=== PATIENT | female | born 1940 | race African-American/Black ===

== ENCOUNTER 2023-02-05 12:53 | Inpatient (IN) | payer OTHER, MEDICAID ==
[~2023-02-05] VITALS: Ht 167.6 cm; Wt 44.0 kg
[2023-02-05] MEDS ORDERED: SODIUM CHLORIDE 0.9% 500 ML IV ONE (13:15)
[2023-02-05 13:42] LABS: Hemoglobin 9.8 g/dL (12.2-16.2)
[2023-02-05 13:43] LABS: Hematocrit 30.8 % (36.0-46.0); Mean Corpuscular Hgb Conc. 31.9 g/dL (32.0-36.0); Mean Corpuscular Volume 78.5 fL (80.0-100.0); Red Blood Cells 3.92 10^6/uL (4.0-5.20)
[2023-02-05 13:53] LABS: Red Cell Distribution Width 21.7 % (11.8-14.3); White Blood Cell 40.8 10^3/uL (4.4-10.8)
[2023-02-05 13:55] LABS: Basophils % (manual) 0 (0.0-2.0); Blast Cells 0; Eosinophils % (manual) 0 (0-7); Myelocytes % 0; Promyelocytes % 0
[2023-02-05 13:58] LABS: Band Neutrophils % (manual) 3; Lymphocytes % (manual) 69 (10.0-50.0); Metamyelocytes % 1; Monocytes % (manual) 3 (0-12); Reactive Lymphocytes 1
[2023-02-05 14:21] LABS: Potassium 3.9 mmol/L (3.5-5.1)
[2023-02-05 14:29] LABS: Albumin 2.4 g/dL (3.4-5.0); BUN/Creatinine Ratio 89.4 (10.0-20.0); Bilirubin, Total 0.4 mg/dL (0.2-1.0); Calcium 10.4 mg/dL (8.5-10.1); Magnesium 2.1 mg/dL (1.6-2.6); Total Protein 5.3 g/dL (6.4-8.2)
[2023-02-05 18:18] LABS: Urine Bacteria FEW /hpf (None Seen); Urine Blood 2+ /uL (Negative); Urine Hyaline Cast FEW /lpf (0 - 2); Urine Mucus FEW (None Seen); Urine Specific Gravity 1.021 (1.001-1.035); Urine WBC 207 /hpf (0 - 5); Urine WBC Clumps PRESENT /hpf (None Seen)
[2023-02-05] MEDS ORDERED: MORPHINE SULFATE INJ 2 MG/ml SYRG IV PRN (18:30)
[2023-02-05] MEDS ORDERED: SODIUM CHLORIDE 0.9% 1,000 ML IV SCH (18:30)
[2023-02-05] MEDS ORDERED: PANTOPRAZOLE 40 MG/10 ML VIAL INJ IV ONE ×2 (18:30→19:30)
[2023-02-05] MEDS ORDERED: ONDANSETRON HCL 4 MG/2 ML VIAL IV PRN ×2 (18:30→19:30)
[2023-02-05] MEDS ORDERED: cefTRIAXone 1GM/50ML D5W 50 ML IV ONE (19:00)
[2023-02-05] MEDS ORDERED: PANT40T PO (19:29)
[2023-02-05] MEDS ORDERED: AMIO200T43 PO (19:29)
[2023-02-05] MEDS ORDERED: FLUC100T34 PO (19:29)
[2023-02-05] MEDS ORDERED: GABA300C10 PO (19:29)
[2023-02-05] MEDS ORDERED: LACT10SO3 PO (19:29)
[2023-02-05] MEDS ORDERED: FAMO40TA7 PO (19:29)
[2023-02-05] MEDS ORDERED: HYDR1TAB97 PO (19:29)
[2023-02-05] MEDS ORDERED: CEPH500C PO (19:29)
[2023-02-05] MEDS ORDERED: AMOX500C2 PO (19:29)
[2023-02-05] MEDS ORDERED: MEGESTROL ACET 400MG/10ML ORAL SUSP PO ONE (20:00)
[2023-02-05] MEDS ORDERED: DEXTROSE (50%) 50ML SYRG IV PRN (20:00)
[2023-02-05] MEDS: ACCU-CHEK COMFORT CURVE STRIP VI SCH (22:00)
[2023-02-05] MEDS: InsuLIN REG 1unit/0.01ml Soln (100units/ml) SC SCH (22:00)
[2023-02-05] MEDS: ACETAMINOPHEN 325 MG TAB PO PRN (23:00)
[2023-02-05] MEDS: SODIUM CHLORIDE 0.9% 1,000 ML IV SCH (23:17)
[2023-02-06] MEDS: MORPHINE SULFATE INJ 2 MG/ml SYRG IV PRN ×2 (00:56→09:49)
[2023-02-06] MEDS: ACETAMINOPHEN 325 MG TAB PO PRN (05:46)
[2023-02-06 06:23] LABS: Hemoglobin 9.1 g/dL (12.2-16.2); Mean Corpuscular Volume 77.9 fL (80.0-100.0)
[2023-02-06 06:25] LABS: Mean Corpuscular Hemoglobin 25.4 pg (28.0-32.0); Mean Corpuscular Hgb Conc. 32.6 g/dL (32.0-36.0)
[2023-02-06 06:30] VITALS: BP 101/66
[2023-02-06] MEDS: InsuLIN REG 1unit/0.01ml Soln (100units/ml) SC SCH ×4 (06:30→22:00)
[2023-02-06] MEDS: ACCU-CHEK COMFORT CURVE STRIP VI SCH ×4 (06:30→22:19)
[2023-02-06 06:47] LABS: Albumin 2.1 g/dL (3.4-5.0); Potassium 3.9 mmol/L (3.5-5.1)
[2023-02-06 06:53] LABS: BUN/Creatinine Ratio 87.1 (10.0-20.0); Bilirubin, Total 0.3 mg/dL (0.2-1.0); Calcium 9.2 mg/dL (8.5-10.1); Total Protein 4.8 g/dL (6.4-8.2)
[2023-02-06 07:03] LABS: Red Cell Distribution Width 21.6 % (11.8-14.3)
[2023-02-06 07:08] LABS: White Blood Cell 43.4 10^3/uL (4.4-10.8)
[2023-02-06 07:09] LABS: Basophils % (manual) 0 (0.0-2.0); Eosinophils % (manual) 0 (0-7); Metamyelocytes % 0; Myelocytes % 0; Promyelocytes % 0
[2023-02-06 08:25] LABS: Phosphorus 1.9 mg/dL (2.5-4.90)
[2023-02-06 09:00] VITALS: BP 104/65
[2023-02-06] MEDS ORDERED: cefTRIAXone 1GM/50ML D5W 50 ML IV SCH (09:00)
[2023-02-06] MEDS: SODIUM CHLORIDE 0.9% 1,000 ML IV SCH ×2 (09:35→22:19)
[2023-02-06] MEDS: PANTOPRAZOLE 40 MG/10 ML VIAL INJ IV SCH (09:36)
[2023-02-06] MEDS: GABAPENTIN 300 MG CAP PO SCH (09:36)
[2023-02-06] MEDS: AMIODARONE HCL 200 MG TAB PO SCH (09:37)
[2023-02-06] MEDS ORDERED: HYOS0.1293 SL (09:51)
[2023-02-06] MEDS ORDERED: ASPI1TAB20 PO (09:51)
[2023-02-06] MEDS ORDERED: FER325T PO (09:51)
[2023-02-06] MEDS: MEGESTROL ACET 400MG/10ML ORAL SUSP PO SCH (09:59)
[2023-02-06] MEDS: ENOXAPARIN SOD 30 MG/0.3 ML SYRINGE SC SCH (09:59)
[2023-02-06] MEDS ORDERED: PANTOPRAZOLE 40 MG/10 ML VIAL INJ IV SCH (10:00)
[2023-02-06] MEDS ORDERED: POTASSIUM PHOSPHATE 26.4 MEQ in SODIUM CHL 0.9% 100 ML IV ONE (10:15)
[2023-02-06] MEDS ORDERED: PIPERACILLIN-TAZOB 3.375GM 100 ML IV ONE (10:15)
[2023-02-06 10:36] LABS: INR 1.18 (0.9-1.15); Partial Thromboplastin Time 23.4 sec (24.6-33.4)
[2023-02-06] MEDS: Ensure HIGH Protein Chocolate 8oz Bottle PO SCH ×2 (12:30→18:50)
[2023-02-06] MEDS ORDERED: CLINIMIX PER PHARMACY 0 ML IV SCH (12:30)
[2023-02-06 12:37] LABS: Reactive Lymphocytes 1
[2023-02-06 12:39] LABS: Band Neutrophils % (manual) 2; Blast Cells 1; Lymphocytes % (manual) 70 (10.0-50.0); Monocytes % (manual) 5 (0-12)
[2023-02-06 13:00] VITALS: BP 107/67
[2023-02-06 17:00] VITALS: BP 102/62
[2023-02-06] MEDS: PIPERACILLIN-TAZOB 3.375GM 100 ML IV SCH (17:55)
[2023-02-06] MEDS: AMINO ACID INFUSION IN D10W 1,000 ML IV NR (20:09)
[2023-02-06 22:38] VITALS: BP 95/59
[2023-02-07] MEDS: PIPERACILLIN-TAZOB 3.375GM 100 ML IV SCH ×3 (01:38→17:22)
[2023-02-07 05:14] VITALS: BP 100/53
[2023-02-07] MEDS: InsuLIN REG 1unit/0.01ml Soln (100units/ml) SC SCH ×3 (06:24→17:30)
[2023-02-07] MEDS: ACCU-CHEK COMFORT CURVE STRIP VI SCH ×3 (06:24→17:23)
[2023-02-07 08:06] LABS: Hematocrit 29.2 % (36.0-46.0); Hemoglobin 9.3 g/dL (12.2-16.2); Mean Corpuscular Hemoglobin 25.2 pg (28.0-32.0); Mean Corpuscular Volume 78.7 fL (80.0-100.0); Red Blood Cells 3.71 10^6/uL (4.0-5.20)
[2023-02-07 08:10] LABS: Calcium 8.7 mg/dL (8.5-10.1); Magnesium 1.9 mg/dL (1.6-2.6); Potassium 4.3 mmol/L (3.5-5.1)
[2023-02-07 08:13] LABS: BUN/Creatinine Ratio 67.6 (10.0-20.0); Bilirubin, Total 0.4 mg/dL (0.2-1.0); Phosphorus 2.4 mg/dL (2.5-4.90); Total Protein 4.8 g/dL (6.4-8.2)
[2023-02-07 08:15] LABS: Red Cell Distribution Width 21.8 % (11.8-14.3)
[2023-02-07 08:21] LABS: White Blood Cell 39.9 10^3/uL (4.4-10.8)
[2023-02-07 08:23] LABS: Band Neutrophils % (manual) 0; Basophils % (manual) 0 (0.0-2.0); Blast Cells 0; Eosinophils % (manual) 0 (0-7); Metamyelocytes % 0; Monocytes % (manual) 0 (0-12); Myelocytes % 0; Promyelocytes % 0
[2023-02-07] MEDS: PANTOPRAZOLE 40 MG/10 ML VIAL INJ IV SCH (08:54)
[2023-02-07] MEDS: GABAPENTIN 300 MG CAP PO SCH (08:54)
[2023-02-07] MEDS: MEGESTROL ACET 400MG/10ML ORAL SUSP PO SCH (08:54)
[2023-02-07] MEDS: AMIODARONE HCL 200 MG TAB PO SCH (08:54)
[2023-02-07] MEDS: ACETAMINOPHEN 325 MG TAB PO PRN (08:54)
[2023-02-07] MEDS: ENOXAPARIN SOD 30 MG/0.3 ML SYRINGE SC SCH (08:55)
[2023-02-07] MEDS: Ensure HIGH Protein Chocolate 8oz Bottle PO SCH ×3 (08:56→17:35)
[2023-02-07 09:00] VITALS: BP 95/56
[2023-02-07] MEDS ORDERED: ASPirin 81 mg TAB PO ONE (10:15)
[2023-02-07 10:21] LABS: Lymphocytes % (manual) 74 (10.0-50.0); Reactive Lymphocytes 13
[2023-02-07] MEDS ORDERED: LACTULOSE 20Gm/30ML SOLN PO ONE (10:30)
[2023-02-07 13:00] VITALS: BP 106/61
[2023-02-07] MEDS ORDERED: SODIUM PHOSPHATES 10 MEQ in SODIUM CHL 0.9% 100 ML IV ONE (13:30)
[2023-02-07] MEDS: SODIUM CHLORIDE 0.9% 1,000 ML IV SCH (14:09)
[2023-02-07 17:00] VITALS: BP 95/63
[2023-02-07] MEDS: traMADol HCL 50 MG TAB PO PRN ×2 (17:32→23:38)
[2023-02-07] MEDS ORDERED: DEXTROSE (50%) 50ML SYRG IV SCH (18:00)
[2023-02-07 22:00] VITALS: BP 94/64
[2023-02-07] MEDS: AMINO ACID INFUSION IN D10W 1,000 ML IV NR (23:39)
[2023-02-08] MEDS: ACCU-CHEK COMFORT CURVE STRIP VI SCH ×4 (00:55→18:53)
[2023-02-08] MEDS: InsuLIN REG 1unit/0.01ml Soln (100units/ml) SC SCH ×4 (00:55→18:59)
[2023-02-08] MEDS: PIPERACILLIN-TAZOB 3.375GM 100 ML IV SCH (01:36)
[2023-02-08] MEDS: LACTULOSE 20Gm/30ML SOLN PO SCH ×2 (01:36→10:58)
[2023-02-08 05:00] VITALS: BP 97/56
[2023-02-08] MEDS: SODIUM CHLORIDE 0.9% 1,000 ML IV SCH (06:13)
[2023-02-08] MEDS ORDERED: ceFAZolin 1GM/50ML 50 ML IV ONE (07:45)
[2023-02-08 08:36] LABS: Albumin 1.9 g/dL (3.4-5.0); BUN/Creatinine Ratio 71.8 (10.0-20.0); Calcium 8.4 mg/dL (8.5-10.1); Magnesium 1.8 mg/dL (1.6-2.6); Phosphorus 2.5 mg/dL (2.5-4.90); Potassium 4.4 mmol/L (3.5-5.1)
[2023-02-08 09:06] LABS: Hepatitis B Surface Antibody Negative (Negative)
[2023-02-08 09:19] VITALS: BP 97/61
[2023-02-08 09:38] LABS: Hepatitis A Total Antibody Positive (Negative)
[2023-02-08] MEDS ORDERED: VANCOMYCIN PER PHARMACY 0 MG IV SCH (09:45)
[2023-02-08] MEDS: AMIODARONE HCL 200 MG TAB PO SCH (10:00)
[2023-02-08] MEDS ORDERED: ASPirin 81 mg TAB PO SCH (10:00)
[2023-02-08] MEDS ORDERED: CEFEPIME 2 GM in SODIUM CHL 0.9% 50 ML IV SCH (10:00)
[2023-02-08] MEDS: MEGESTROL ACET 400MG/10ML ORAL SUSP PO SCH (10:57)
[2023-02-08] MEDS: PANTOPRAZOLE 40 MG/10 ML VIAL INJ IV SCH (10:57)
[2023-02-08] MEDS: Ensure HIGH Protein Chocolate 8oz Bottle PO SCH ×3 (11:02→18:53)
[2023-02-08 11:05] LABS: Hepatitis C Antibody Negative (Negative)
[2023-02-08 12:00] VITALS: BP 95/55
[2023-02-08] MEDS ORDERED: VANCOMYCIN 500 MG in D5W 5% 100 ML IV SCH (14:00)
[2023-02-08 16:00] VITALS: BP 98/64
== END 2023-02-08 20:00 | disposition short-term general hospital (02) | DRG 871 ==
LOC: EDBD 12:53 → ER 12:53 → OVERFLOW 18:18 → CENTRAL 02-06 06:10
PROVIDERS: ADMIT Nurse Practitioner Family; ATTEND Internal Medicine
DX: A41.9 Sepsis, unspecified organism (principal); E43 Unspecified severe protein-calorie malnutrition; L89.94 Pressure ulcer of unspecified site, stage 4; J69.0 Pneumonitis due to inhalation of food and vomit; J90 Pleural effusion, not elsewhere classified; K80.00 Calculus of gallbladder with acute cholecystitis without obstruction; N30.00 Acute cystitis without hematuria; R18.8 Other ascites; C91.10 Chronic lymphocytic leukemia of B-cell type not having achieved remission; Z68.1 Body mass index [BMI] 19.9 or less, adult; Z20.822 Contact with and (suspected) exposure to COVID-19; Z66 Do not resuscitate; E11.9 Type 2 diabetes mellitus without complications; E89.0 Postprocedural hypothyroidism; I10 Essential (primary) hypertension; K21.9 Gastro-esophageal reflux disease without esophagitis; G89.29 Other chronic pain; E83.39 Other disorders of phosphorus metabolism; I48.91 Unspecified atrial fibrillation; B95.61 Methicillin susceptible Staphylococcus aureus infection as the cause of diseases classified elsewhere; Z86.718 Personal history of other venous thrombosis and embolism; Z51.5 Encounter for palliative care; Z74.01 Bed confinement status; Z87.11 Personal history of peptic ulcer disease
CPT/HCPCS: 36415; 71045; 74176; 76705; 80053; 80069; 81001; 82140; 82607; 82728; 82962; 83036; 83605; 83735; 84100; 84443; 84484; 85007; 85027; 85610; 85730; 86038; 86704; 86706; 86708; 86803; 87040; 87086; 87088; 87186; 87340; 87426; 93005; 93306; 96361; 96365; 97163; C9113; G0378; J0696; J1815; J2543; J7060